=== PATIENT | male | born 1970 | race Hispanic/Latino ===

== ENCOUNTER 2017-11-06 11:06 | Emergency (ER) | payer BC ==
[~2017-11-06 11:06] MED LIST: AEC81 PO; ATOR40TA69 PO; LISI10TA7 PO; METF10004 PO; METO25TA6 PO; NITR0.4T SL; TICA90TA PO
[2017-11-06] MEDS ORDERED: ONDANSETRON HCL MDV 20ML 2 MG/ML VIAL ONE (11:46)
[2017-11-06] MEDS ORDERED: SODIUM CHLORIDE 0.9% 1000ML 1,000 ML IV ONE (11:46)
[2017-11-06 12:09] LABS: BASOPHILS % (AUTO) 0.6 % (0.0-5.0); EOSINOPHILS % (AUTO) 0.3 % (0.0-8.0); HEMATOCRIT 38.6 % (42-54); LYMPHOCYTES % (AUTO) 13.5 % (21.0-51.0); MEAN CORPUSCULAR HEMOGLOBIN 31.5 pg (27.0-33.0); MEAN CORPUSCULAR HGB CONC 35.3 g/dL (32.0-36.0); MEAN CORPUSCULAR VOLUME 89.1 fL (79-99); MONOCYTES % (AUTO) 5.3 % (3.0-13.0); NEUTROPHILS % (AUTO) 80.3 % (40.0-77.0); PLATELET COUNT (AUTO) 392 K/uL (130-400); RED BLOOD CELL COUNT(AUTO) 4.33 MIL/uL (4.50-6.20); RED CELL DISTRIBUTION WIDTH 14.4 % (11.0-15.5); WHITE BLOOD COUNT (AUTO) 8.6 K/uL (4.8-10.8)
[2017-11-06 12:19] LABS: CREATININE 1.1 mg/dL (0.5-1.5); POTASSIUM 3.8 mmol/L (3.5-5.1)
[2017-11-06 12:32] LABS: ALBUMIN 4.3 g/dL (3.5-5.0); BILIRUBIN,TOTAL 0.6 mg/dL (0.2-1.0); CREATINE KINASE MB 5.6 ng/mL (0.5-3.6)
== END 2017-11-06 16:10 | disposition home or self-care (01) ==
LOC: EDH 11:06
DX: E86.0 Dehydration (principal); R42 Dizziness and giddiness; I10 Essential (primary) hypertension; I25.2 Old myocardial infarction
CPT/HCPCS: 36415; 80053; 82550; 82553; 84484 ×2; 85025; 93005 ×2; 96361; 96374; 99285; J7030

== ENCOUNTER 2018-06-16 11:18 | Emergency (ER) | payer BC ==
[~2018-06-16 11:18] MED LIST changes: +METF-446 PO; -METF10004 PO
[2018-06-16 11:39] LABS: APPEARANCE,URINE Clear (CLEAR); BILIRUBIN,URINE Negative (NEGATIVE); COLOR,URINE Yellow (YELLOW); GLUCOSE, URINE (UA) 250 mg/dL (NEGATIVE); KETONES,URINE Negative (NEGATIVE); LEUKOCYTE ESTERASE ,URINE Trace (NEGATIVE); NITRATE,URINE Negative (NEGATIVE); OCCULT BLOOD,URINE Negative (NEGATIVE); PH,URINE 5.5 (5.0-8.0); PROTEIN,URINE Negative (NEGATIVE)
[2018-06-16 11:52] LABS: BACTERIA,URINE Rare /HPF (None Seen); RBC,URINE 0-1 /HPF (0-1); SQUAMOUS EPITHELIAL CELL,UR Rare /HPF (0-2); WBC,URINE 0-1 /HPF (0-1)
[2018-06-16] MEDS ORDERED: KETOROLAC TROMETHAMINE 60 MG/2 ML VIAL ONE (12:15)
== END 2018-06-16 13:04 | disposition home or self-care (01) ==
LOC: EDH 11:18
DX: R10.9 Unspecified abdominal pain (principal); E11.9 Type 2 diabetes mellitus without complications; I10 Essential (primary) hypertension; I25.2 Old myocardial infarction; Z72.0 Tobacco use
CPT/HCPCS: 71045; 81001; 96372; 99284; J1885

== ENCOUNTER 2018-08-28 07:56 | Emergency (ER) | payer BC ==
[2018-08-28] MEDS ORDERED: IBUPROFEN 600 MG TABLET ONE (09:02)
== END 2018-08-28 09:06 | disposition home or self-care (01) ==
LOC: EDH 07:56
DX: K11.20 Sialoadenitis, unspecified (principal); H92.02 Otalgia, left ear; E11.9 Type 2 diabetes mellitus without complications; I10 Essential (primary) hypertension; I25.2 Old myocardial infarction

== ENCOUNTER 2019-02-23 09:20 | Observation (INO) | payer BC ==
[~2019-02-23] VITALS: Ht 180.3 cm; Wt 83.9 kg
[2019-02-23 09:37] LABS: BASOPHILS % (AUTO) 1.2 % (0.0-5.0); EOSINOPHILS % (AUTO) 2.1 % (0.0-8.0); HEMATOCRIT 39.9 % (42-54); LYMPHOCYTES % (AUTO) 16.9 % (21.0-51.0); MEAN CORPUSCULAR HEMOGLOBIN 30.9 pg (27.0-33.0); MEAN CORPUSCULAR HGB CONC 34.6 g/dL (32.0-36.0); MEAN CORPUSCULAR VOLUME 89.5 fL (79-99); MONOCYTES % (AUTO) 6.5 % (3.0-13.0); NEUTROPHILS % (AUTO) 73.3 % (40.0-77.0); NUCLEATED RED BLOOD CELLS 0.1 % (0.0-0.19); PLATELET COUNT (AUTO) 282 K/uL (130-400); RED BLOOD CELL COUNT(AUTO) 4.46 MIL/uL (4.50-6.20); RED CELL DISTRIBUTION WIDTH 13.5 % (11.0-15.5); WHITE BLOOD COUNT (AUTO) 6.7 K/uL (4.8-10.8)
[2019-02-23] MEDS ORDERED: ASPIRIN 325 MG TABLET ONE (09:41)
[2019-02-23 09:45] LABS: CREATININE 0.8 mg/dL (0.5-1.5); POTASSIUM 3.9 mmol/L (3.5-5.1)
[2019-02-23] MEDS ORDERED: NITROGLYCERIN 0.4 MG SL TAB SL ONE (09:52)
[2019-02-23] MEDS ORDERED: INSULIN HUMULIN R 100 UNIT/ML 3ML ONE ×2 (09:53→11:54)
[2019-02-23 09:58] LABS: ALBUMIN 3.7 g/dL (3.5-5.0); BILIRUBIN,TOTAL 0.4 mg/dL (0.2-1.0); TOTAL PROTEIN, SERUM 7.2 g/dL (6.0-8.3)
[2019-02-23 10:00] LABS: B-TYPE NATRIURETIC PEPTIDE 25 pg/mL (0-100)
[2019-02-23 10:03] LABS: INR 0.91 (0.85-1.15); PROTHROMBIN TIME 9.6 SEC (9.6-11.6)
[2019-02-23] MEDS: NITROGLYCERIN 1GM/1 INCH PACKET TD SCH ×2 (11:45→20:52)
[2019-02-23] MEDS ORDERED: LACTULOSE 20 GM/30 ML UDCUP PO PRN (11:45)
[2019-02-23] MEDS ORDERED: ONDANSETRON HCL 4 MG/2 ML VIAL IV PRN (11:45)
[2019-02-23] MEDS ORDERED: HYDRALAZINE HCL 20 MG/ML VIAL IV PRN (11:45)
[2019-02-23] MEDS ORDERED: ACETAMINOPHEN 325 MG TAB PO PRN ×2 (11:45)
[2019-02-23] MEDS ORDERED: MORPHINE SULFATE 2 MG/ML 1ML SYG IV PRN (11:45)
[2019-02-23] MEDS ORDERED: NITROGLYCERIN 0.4 MG SL TAB SL PRN (11:45)
[2019-02-23 12:00] LABS: HEMOGLOBIN A1C 8.4 % (4.0-6.0)
[2019-02-23] MEDS ORDERED: ENOXAPARIN SODIUM 40 MG/0.4 ML SYRINGE SQ ONE (12:13)
[2019-02-23] MEDS ORDERED: NITROGLYCERIN 1GM/1 INCH PACKET TD ONE (12:13)
[2019-02-23] MEDS ORDERED: SODIUM CHLORIDE 0.9% 1000ML 1,000 ML IV ONE (12:14)
--- NOTE | 2019-02-23 12:40 | NUR ---
RECEIVED FROM ED VIA STRETCHER ACCOMPANIED BY ED RN. PT. AAOX3, RESP'S EVEN AND UNLABORED. DENIES ANY CURRENT SOB, DENIES ANY CURRENT PAIN. ORIENTED TO ROOM AND SURROUNDINGS. COMPLETE ASSESSMENT DONE. CALL LIGHT WITHIN REACH, VERBALIZED ABILITY TO USE. BED LOW, SIDE RAILS UP X2.
[2019-02-23 12:41] VITALS: BP 145/80
[2019-02-23] MEDS: SODIUM CHLORIDE 0.9% 1000ML 1,000 ML IV SCH ×2 (13:15→21:39)
[2019-02-23 13:24] LABS: CREATINE KINASE, TOTAL 135 U/L (21-232); MYOGLOBIN 31 ng/mL (10-92); TROPONIN I < 0.04 ng/mL (0.00-0.06)
[2019-02-23 16:30] VITALS: BP 124/75
[2019-02-23 19:49] VITALS: BP 143/70
[2019-02-23] MEDS: METOPROLOL TARTRATE 25 MG TAB PO SCH (20:52)
[2019-02-23 20:53] LABS: CREATINE KINASE, TOTAL 103 U/L (21-232); MYOGLOBIN 24 ng/mL (10-92); TROPONIN I < 0.04 ng/mL (0.00-0.06)
[2019-02-23] MEDS: FAMOTIDINE/PF 20 MG/2 ML VIAL IV SCH (20:53)
[2019-02-23 23:44] VITALS: BP 142/72
[2019-02-24 04:00] VITALS: BP 130/83
[2019-02-24 04:23] LABS: CREATINE KINASE, TOTAL 89 U/L (21-232); MYOGLOBIN 29 ng/mL (10-92); TROPONIN I < 0.04 ng/mL (0.00-0.06)
[2019-02-24] MEDS: NITROGLYCERIN 1GM/1 INCH PACKET TD SCH ×2 (04:31→12:08)
[2019-02-24] MEDS: SODIUM CHLORIDE 0.9% 1000ML 1,000 ML IV SCH (06:14)
--- NOTE | 2019-02-24 07:30 | NUR ---
ASSESSMENT ENCOUNTERED PT A&OX3, CALM COOPERATIVE AND DOES NOT APPEAR TO BE IN ANY DISTRESS NOR ANY NEURO DEFICITS PRESENT. PT DENIES PAIN, SOB, NAUSEA. RT GROIN SOFT NONTENDER WITH NO OOZING OR HEMATOMA PRESENT. DP/PT PULSES PALPABLE. PT IS AMBULATORY, GAIT STEADY AND STRONG WITH STAND BY ASSIST. CALL LIGHT WITHIN REACH.
[2019-02-24 07:47] VITALS: BP 140/75
[2019-02-24] MEDS ORDERED: ASPIRIN 325 MG TABLET PO SCH (09:00)
[2019-02-24] MEDS ORDERED: ENOXAPARIN SODIUM 40 MG/0.4 ML SYRINGE SQ SCH (09:00)
--- NOTE | 2019-02-24 09:40 | NUR ---
SS REFERRAL - EVAL Sw reviewed pt's chart. No SS issues identified at this time. SW to follow and assist as needed
[2019-02-24 12:03] VITALS: BP 159/95
[2019-02-24] MEDS: METOPROLOL TARTRATE 25 MG TAB PO SCH (12:07)
[2019-02-24] MEDS: FAMOTIDINE/PF 20 MG/2 ML VIAL IV SCH (12:08)
--- NOTE | 2019-02-24 14:36 | NUR ---
DC PLAN VISITED WITH PATIENT. PATIENT LIVES ALONE WITH CHILD. PATIENT HAS NO SERVICES OR DME'S. OKAY TO RETURN HOME. Addendum: 02/24/19 at 1437 by DANITZA LAGUNAS RN CM Amended: Links added.
[2019-02-24 15:45] VITALS: BP 148/92
[2019-02-24] MEDS ORDERED: METF-446 PO (17:00)
[2019-02-24] MEDS ORDERED: EMPA25TA PO (17:00)
[2019-02-24] MEDS ORDERED: METFORMIN HCL 500 MG TABLET PO SCH (17:00)
[2019-02-24] MEDS ORDERED: METO-408 PO (17:00)
[2019-02-24] MEDS ORDERED: ATORVASTATIN CALCIUM 40 MG TABLET PO SCH (21:00)
[2019-02-25] MEDS ORDERED: LOSARTAN 50 MG TABLET PO SCH (09:00)
[2019-02-25] MEDS ORDERED: ASPIRIN 325 MG TABLET PO SCH (09:00)
== END 2019-02-24 16:45 | disposition home or self-care (01) ==
LOC: EDH 09:20 → EDHIP 11:39 → 2DH 12:17
PROVIDERS: ADMIT Internal Medicine; ATTEND Internal Medicine
DX: I25.110 Atherosclerotic heart disease of native coronary artery with unstable angina pectoris (principal); E11.9 Type 2 diabetes mellitus without complications; E78.5 Hyperlipidemia, unspecified; I45.10 Unspecified right bundle-branch block; I10 Essential (primary) hypertension; I25.2 Old myocardial infarction; Z87.891 Personal history of nicotine dependence; Z95.5 Presence of coronary angioplasty implant and graft; Z82.49 Family history of ischemic heart disease and other diseases of the circulatory system; Z83.3 Family history of diabetes mellitus; Z79.899 Other long term (current) drug therapy; Z79.01 Long term (current) use of anticoagulants
CPT/HCPCS: 36415 ×2; 71045; 80053; 82550 ×4; 82948 ×4; 83036; 83874 ×4; 83880; 84484 ×4; 85025; 85610; 85730; 93005 ×4; 96372; 96374; 96376; 99283; G0378 ×28; J1650 ×2; J1815 ×2; J3490 ×2; J7030 ×2

== ENCOUNTER 2022-06-05 07:15 | Emergency (ER) | payer BC, OTHER ==
[~2022-06-05] VITALS: Ht 180.3 cm; Wt 79.4 kg
[~2022-06-05 07:15] MED LIST changes: +EMPA25TA PO; +LISI10TA24 PO; -LISI10TA7 PO; +METO-408 PO; -METO25TA6 PO; -NITR0.4T SL; -TICA90TA PO
[2022-06-05] MEDS ORDERED: KETOROLAC 15MG/ML VIAL (15MG/ML) IM ONE (08:30)
[2022-06-05 08:41] LABS: BASOPHILS % (AUTO) 0.8 % (0.0-5.0); EOSINOPHILS % (AUTO) 1.2 % (0.0-8.0); HEMATOCRIT 45.1 % (42-54); LYMPHOCYTES % (AUTO) 12.4 % (21.0-51.0); MEAN CORPUSCULAR HEMOGLOBIN 30.3 pg (27.0-33.0); MEAN CORPUSCULAR HGB CONC 34.4 g/dL (32.0-36.0); MEAN CORPUSCULAR VOLUME 88.3 fL (79-99); MONOCYTES % (AUTO) 10.5 % (3.0-13.0); NEUTROPHILS % (AUTO) 74.7 % (40.0-77.0); PLATELET COUNT (AUTO) 326 K/uL (130-400); RED BLOOD CELL COUNT(AUTO) 5.11 MIL/uL (4.50-6.20); RED CELL DISTRIBUTION WIDTH 12.6 % (11.0-15.5); WHITE BLOOD COUNT (AUTO) 10.3 K/uL (4.8-10.8)
[2022-06-05 08:51] LABS: CREATININE 0.6 mg/dL (0.5-1.5); POTASSIUM 3.7 mmol/L (3.5-5.1)
[2022-06-05 08:56] LABS: ALBUMIN 3.7 g/dL (3.5-5.0); TOTAL PROTEIN, SERUM 7.8 g/dL (6.0-8.3)
[2022-06-05 09:58] LABS: APPEARANCE,URINE CLEAR (CLEAR); BILIRUBIN,URINE NEGATIVE (NEGATIVE); COLOR,URINE LIGHT-YELLOW (YELLOW); GLUCOSE, URINE (UA) >=1000 mg/dL (NEGATIVE); KETONES,URINE NEGATIVE (NEGATIVE); LEUKOCYTE ESTERASE ,URINE NEGATIVE Leu/uL (NEGATIVE); NITRATE,URINE NEGATIVE (NEGATIVE); OCCULT BLOOD,URINE NEGATIVE (NEGATIVE); PH,URINE 5.5 (5.0-8.0); PROTEIN,URINE 70 mg/dL (NEGATIVE); UROBILINOGEN,URINE 0.2 mg/dL (0.2-1.0)
[2022-06-05] MEDS ORDERED: ACET-2079 PO (10:13)
[2022-06-05] MEDS ORDERED: IBUP-2070 PO (10:13)
[2022-06-05] MEDS ORDERED: METF-446 PO (10:14)
[2022-06-05 10:17] LABS: SQUAMOUS EPITHELIAL CELL,UR RARE /HPF (0-2); YEAST,URINE BUDDING RARE /HPF (None Seen)
[2022-06-05 10:32] VITALS: BP 139/85
== END 2022-06-05 10:37 | disposition home or self-care (01) ==
LOC: EDH 07:15
DX: M54.42 Lumbago with sciatica, left side (principal); E11.65 Type 2 diabetes mellitus with hyperglycemia; Z20.822 Contact with and (suspected) exposure to COVID-19; I10 Essential (primary) hypertension; Z79.84 Long term (current) use of oral hypoglycemic drugs; Z79.82 Long term (current) use of aspirin; Z79.899 Other long term (current) drug therapy
CPT/HCPCS: 99284; 87635; 80053; 85025; 81001; 36415; 72100; 96372; C9803; J1885

== ENCOUNTER 2022-07-01 08:54 | Observation (INO) | payer OTHER ==
[2022-07-01] VITALS (9 sets, daily range): BP systolic 119–148; BP diastolic 66–88
[~2022-07-01] VITALS: Ht 180.3 cm; Wt 80.3 kg
[~2022-07-01 08:54] MED LIST changes: +ACET-2079 PO; +IBUP-2070 PO
[2022-07-01 09:23] LABS: EOSINOPHILS % (AUTO) 1.2 % (0.0-8.0); HEMATOCRIT 43.1 % (42-54); LYMPHOCYTES % (AUTO) 18.7 % (21.0-51.0); MEAN CORPUSCULAR HEMOGLOBIN 29.8 pg (27.0-33.0); MEAN CORPUSCULAR HGB CONC 33.9 g/dL (32.0-36.0); MONOCYTES % (AUTO) 6.5 % (3.0-13.0); NEUTROPHILS % (AUTO) 72.1 % (40.0-77.0); PLATELET COUNT (AUTO) 331 K/uL (130-400); RED CELL DISTRIBUTION WIDTH 12.7 % (11.0-15.5); WHITE BLOOD COUNT (AUTO) 9.9 K/uL (4.8-10.8)
[2022-07-01] MEDS ORDERED: ASPIRIN 81MG CHEW TAB PO ONE (09:30)
[2022-07-01] MEDS ORDERED: LACTATED RINGERS 1000ML 1,000 ML IV ONE (09:30)
[2022-07-01 09:38] LABS: ALBUMIN 3.6 g/dL (3.5-5.0); CREATININE 0.7 mg/dL (0.5-1.5); POTASSIUM 3.3 mmol/L (3.5-5.1); TOTAL PROTEIN, SERUM 7.2 g/dL (6.0-8.3)
[2022-07-01 10:00] LABS: B-TYPE NATRIURETIC PEPTIDE 36 pg/mL (0-100)
[2022-07-01 10:16] LABS: APPEARANCE,URINE CLEAR (CLEAR); BILIRUBIN,URINE NEGATIVE (NEGATIVE); COLOR,URINE LIGHT-YELLOW (YELLOW); GLUCOSE, URINE (UA) >=1000 mg/dL (NEGATIVE); KETONES,URINE NEGATIVE (NEGATIVE); LEUKOCYTE ESTERASE ,URINE 25 Leu/uL (NEGATIVE); NITRATE,URINE NEGATIVE (NEGATIVE); OCCULT BLOOD,URINE NEGATIVE (NEGATIVE); PROTEIN,URINE 30 mg/dL (NEGATIVE); UROBILINOGEN,URINE 0.2 mg/dL (0.2-1.0)
[2022-07-01 10:18] LABS: AMPHET/METH SCREEN,URINE NEGATIVE (NEGATIVE); BARBITURATE SCREEN, URINE NEGATIVE (NEGATIVE); BENZODIAZEPINES SCREEN,URINE NEGATIVE (NEGATIVE); CANNABINOID SCREEN,URINE POSITIVE (NEGATIVE); COCAINE SCREEN,URINE NEGATIVE (NEGATIVE); MUCUS,URINE RARE LPF (None Seen); OPIATE SCREEN,URINE NEGATIVE (NEGATIVE); PHENCYCLIDINE SCREEN,URINE NEGATIVE (NEGATIVE); SQUAMOUS EPITHELIAL CELL,UR RARE /HPF (0-2)
[2022-07-01] MEDS ORDERED: ASPIRIN 325MG EC TAB PO STA (10:38)
[2022-07-01] MEDS ORDERED: NITROGLYCERIN 0.4 MG SL TAB SL STA (10:38)
[2022-07-01] MEDS ORDERED: ONDANSETRON 4MG INJ IV PRN (11:30)
[2022-07-01] MEDS ORDERED: MORPHINE 4 MG SYG IVP PRN (11:30)
[2022-07-01] MEDS ORDERED: ACETAMINOPHEN 500 MG TABLET PO PRN (11:30)
[2022-07-01] MEDS ORDERED: MORPHINE 2 MG SYG IVP PRN (11:30)
[2022-07-01] MEDS ORDERED: CLOPIDOGREL 300MG TAB PO SCH (11:30)
[2022-07-01] MEDS: METFORMIN HCL 500 MG TABLET PO SCH ×2 (12:00→16:09)
[2022-07-01] MEDS ORDERED: LISINOPRIL 2.5 MG TABLET PO SCH (12:00)
[2022-07-01 12:12] LABS: HEMATOCRIT 40.9 % (42-54)
[2022-07-01 12:23] LABS: PROTEIN,URINE RANDOM 39.1 mg/dL (0-11.9)
[2022-07-01] MEDS: 0.9%NACL 1000ML 1,000 ML IV SCH (13:32)
[2022-07-01] MEDS: ENOXAPARIN SODIUM 80 MG/0.8 ML SQ SCH ×2 (13:33→20:52)
[2022-07-01] MEDS: AMLODIPINE 5 MG TAB PO SCH (13:33)
[2022-07-01] MEDS: NITROGLYCERIN 1GM OINT 1 INCH/1GM TD SCH ×2 (13:34→20:53)
[2022-07-01] MEDS ORDERED: KCL 20 MEQ ERTAB PO ONE (14:00)
[2022-07-01] MEDS ORDERED: CLOPIDOGREL 300MG TAB PO ONE (16:00)
[2022-07-01] MEDS: INSULIN HUMULIN R 100 UNIT/ML 3ML SQ SCH ×2 (16:10→20:51)
[2022-07-01] MEDS ORDERED: NITROGLYCERIN 50MG VIAL ONE (16:23)
[2022-07-01] MEDS ORDERED: HEPARIN 10,000 UNIT/10ML (1,000 UNIT/ML) VIAL ONE (16:23)
[2022-07-01] MEDS ORDERED: MIDAZOLAM HCL 1 MG/ML 2ML VIAL ONE (16:24)
[2022-07-01] MEDS ORDERED: IODIXANOL 320 MG/ML 100 ML VIAL ONE (16:24)
[2022-07-01] MEDS ORDERED: LIDOCAINE HCL 400MG/20ML VIAL ONE (16:24)
[2022-07-01] MEDS ORDERED: FENTANYL CITRATE PF 50 MCG/1 ML 2ML VIAL ONE (16:24)
[2022-07-01] MEDS ORDERED: IOHEXOL-350 50ML VIAL IV ONE (16:24)
[2022-07-01] MEDS ORDERED: BIVALIRUDIN 250 MG/VIAL IV ONE ×2 (16:27→16:37)
[2022-07-01] MEDS ORDERED: EPTIFIBATIDE 2 MG/ML 10 ML VIAL IVP ONE (17:26)
[2022-07-01] MEDS ORDERED: 0.9%NACL 1000ML 1,000 ML IV SCH (18:30)
[2022-07-01] MEDS: FAMOTIDINE 20MG TAB PO SCH (20:52)
[2022-07-01] MEDS ORDERED: ATORVASTATIN 40 MG TABLET PO SCH (21:00)
[2022-07-01] MEDS ORDERED: INSULIN GLARGINE 100 UNITS/ML 10 ML VIAL SQ SCH (21:00)
[2022-07-02] MEDS ORDERED: ALPRAZOLAM 0.25 MG TABLET PO ONE
[2022-07-02] MEDS: 0.9%NACL 1000ML 1,000 ML IV SCH ×3 (00:05→06:46)
[2022-07-02 00:15] VITALS: BP 147/98
[2022-07-02 03:15] VITALS: BP 130/76
[2022-07-02 03:39] LABS: MEAN CORPUSCULAR HEMOGLOBIN 30.2 pg (27.0-33.0); MEAN CORPUSCULAR HGB CONC 33.8 g/dL (32.0-36.0); MEAN CORPUSCULAR VOLUME 89.3 fL (79-99); RED BLOOD CELL COUNT(AUTO) 5.04 MIL/uL (4.50-6.20); RED CELL DISTRIBUTION WIDTH 13.2 % (11.0-15.5); WHITE BLOOD COUNT (AUTO) 10.6 K/uL (4.8-10.8)
[2022-07-02 04:05] LABS: CREATININE 0.6 mg/dL (0.5-1.5); POTASSIUM 3.5 mmol/L (3.5-5.1)
[2022-07-02] MEDS: NITROGLYCERIN 1GM OINT 1 INCH/1GM TD SCH ×2 (04:37→12:37)
[2022-07-02] MEDS: INSULIN HUMULIN R 100 UNIT/ML 3ML SQ SCH ×2 (06:47→12:39)
[2022-07-02 07:55] VITALS: BP 106/62
[2022-07-02] MEDS: METFORMIN HCL 500 MG TABLET PO SCH (08:00)
[2022-07-02] MEDS: ENOXAPARIN SODIUM 80 MG/0.8 ML SQ SCH (08:17)
[2022-07-02] MEDS: AMLODIPINE 5 MG TAB PO SCH (08:17)
[2022-07-02] MEDS: FAMOTIDINE 20MG TAB PO SCH (08:17)
[2022-07-02] MEDS ORDERED: CLOPIDOGREL 75MG TAB PO SCH (09:00)
[2022-07-02] MEDS ORDERED: LISINOPRIL 2.5 MG TABLET PO SCH (09:00)
[2022-07-02] MEDS ORDERED: CEFTRIAXONE 2GM VIAL IVPB SCH (10:00)
[2022-07-02] MEDS ORDERED: 0.9%NACL 100ML 100 ML ONE (10:27)
[2022-07-02] MEDS ORDERED: ATOR40TA69 PO (10:50)
[2022-07-02] MEDS ORDERED: LISI10TA24 PO (10:50)
[2022-07-02] MEDS ORDERED: GLIP5TAB11 PO (10:50)
[2022-07-02] MEDS ORDERED: CLOP-31 PO (10:50)
[2022-07-02] MEDS ORDERED: METF-444 PO (10:52)
[2022-07-02] MEDS ORDERED: CEPH500B PO (10:56)
[2022-07-02] MEDS ORDERED: ASPI-1005 PO (10:56)
[2022-07-02 11:46] LABS: HEMOGLOBIN A1C 12.5 % (4.0-6.0)
[2022-07-02 12:08] VITALS: BP 120/67
[2022-07-02] MEDS ORDERED: EZET10TA48 PO (13:40)
[2022-07-02] MEDS ORDERED: GLIPIZIDE 5 MG TABLET PO SCH (16:30)
== END 2022-07-02 14:15 | disposition home or self-care (01) ==
LOC: EDH 08:54 → EDHIP 08:55 → 2AH 14:29
PROVIDERS: ADMIT Internal Medicine; ATTEND Internal Medicine
DX: I21.4 Non-ST elevation (NSTEMI) myocardial infarction (principal); I21.19 ST elevation (STEMI) myocardial infarction involving other coronary artery of inferior wall; E11.65 Type 2 diabetes mellitus with hyperglycemia; I10 Essential (primary) hypertension; E87.1 Hypo-osmolality and hyponatremia; E87.6 Hypokalemia; E87.8 Other disorders of electrolyte and fluid balance, not elsewhere classified; R80.9 Proteinuria, unspecified; R81 Glycosuria; I25.10 Atherosclerotic heart disease of native coronary artery without angina pectoris; E78.5 Hyperlipidemia, unspecified; F41.9 Anxiety disorder, unspecified; I25.2 Old myocardial infarction; I45.4 Nonspecific intraventricular block; N39.0 Urinary tract infection, site not specified; M79.81 Nontraumatic hematoma of soft tissue; T82.855A Stenosis of coronary artery stent, initial encounter; Y83.1 Surgical operation with implant of artificial internal device as the cause of abnormal reaction of the patient, or of later complication, without mention of misadventure at the time of the procedure; Z79.02 Long term (current) use of antithrombotics/antiplatelets; Z79.82 Long term (current) use of aspirin; Z79.84 Long term (current) use of oral hypoglycemic drugs; Z79.899 Other long term (current) drug therapy; Z91.199 Patient's noncompliance with other medical treatment and regimen due to unspecified reason
CPT/HCPCS: 93458; 96372 ×2; 99285; 82550 ×4; 84156; 82570; 83874 ×3; 84484 ×5; 80053; 83880 ×2; 80305; 85025; 85014; 85018; 87088; 82948 ×5; 82043; 81001; 36415 ×2; 71045; 93005 ×2; 96374; 83036; 80061; 80048; 85027; 93306; 93356; 76882; C1887; C1894 ×2; C1769; C1760; C1874; C1725; G0378 ×23; J7120; J3010; J3490 ×2; J7030 ×3; J2405; J1650 ×4; J1327; J1644; Q9967 ×2; J1815 ×3; C9606; J0696; 99156; 99157; J0583; J2250

== ENCOUNTER → 2022-11-06 | Outpatient (CLI) | payer BC ==
[~2022-11-06] MED LIST changes: -ACET-2079 PO; -AEC81 PO; +ASPI-1005 PO; +CEPH500B PO; +CLOP-31 PO; -EMPA25TA PO; +EZET10TA48 PO; +GLIP5TAB11 PO; -IBUP-2070 PO; +METF-444 PO; -METF-446 PO; -METO-408 PO
[2022-11-06 12:31] LABS: APPEARANCE,URINE CLOUDY (CLEAR); BILIRUBIN,URINE NEGATIVE (NEGATIVE); COLOR,URINE YELLOW (YELLOW); GLUCOSE, URINE (UA) 300 mg/dL (NEGATIVE); KETONES,URINE NEGATIVE (NEGATIVE); LEUKOCYTE ESTERASE ,URINE 250 Leu/uL (NEGATIVE); NITRATE,URINE NEGATIVE (NEGATIVE); OCCULT BLOOD,URINE NEGATIVE (NEGATIVE); PH,URINE 5.5 (5.0-8.0); PROTEIN,URINE 100 mg/dL (NEGATIVE); UROBILINOGEN,URINE 0.2 mg/dL (0.2-1.0)
[2022-11-06 12:36] LABS: BASOPHILS % (AUTO) 1.1 % (0.0-5.0); HEMATOCRIT 42.2 % (42-54); LYMPHOCYTES % (AUTO) 23.4 % (21.0-51.0); MEAN CORPUSCULAR HEMOGLOBIN 29.8 pg (27.0-33.0); MEAN CORPUSCULAR HGB CONC 32.7 g/dL (32.0-36.0); MEAN CORPUSCULAR VOLUME 91.1 fL (79-99); MONOCYTES % (AUTO) 7.6 % (3.0-13.0); NEUTROPHILS % (AUTO) 65.5 % (40.0-77.0); PLATELET COUNT (AUTO) 411 K/uL (130-400); RED BLOOD CELL COUNT(AUTO) 4.63 MIL/uL (4.50-6.20); RED CELL DISTRIBUTION WIDTH 13.3 % (11.0-15.5); WHITE BLOOD COUNT (AUTO) 8.1 K/uL (4.8-10.8)
[2022-11-06 12:44] LABS: BACTERIA,URINE RARE /HPF (None Seen); MUCUS,URINE MANY LPF (None Seen); SQUAMOUS EPITHELIAL CELL,UR MOD /HPF (0-2)
[2022-11-06 12:54] LABS: ALBUMIN 4.1 g/dL (3.5-5.0); CREATININE 0.7 mg/dL (0.5-1.5); POTASSIUM 3.8 mmol/L (3.5-5.1); THYROID STIMULATING HORMONE 1.32 uIU/mL (0.36-3.74); TOTAL PROTEIN, SERUM 7.8 g/dL (6.0-8.3)
[2022-11-06 13:16] LABS: HEMOGLOBIN A1C 9.4 % (4.0-6.0)
== END | disposition home or self-care (01) ==
LOC: LAB 08:14
PROVIDERS: ATTEND Internal Medicine Cardiovascular Disease
DX: I25.10 Atherosclerotic heart disease of native coronary artery without angina pectoris (principal); E78.5 Hyperlipidemia, unspecified
CPT/HCPCS: 36415; 80050; 80053; 81001; 83036; 83721; 84443; 85025; 87088

== ENCOUNTER 2023-10-22 09:01 | Observation (INO) | payer BC ==
[~2023-10-22] VITALS: Ht 180.3 cm; Wt 78.1 kg
[~2023-10-22 09:01] MED LIST changes: -GLIP5TAB11 PO; +GLIP5TAB15 PO
[2023-10-22 09:27] LABS: BASOPHILS # (AUTO) 0.09 K/uL (0.00-0.20); BASOPHILS % (AUTO) 0.9 % (0.0-5.0); EOSINOPHILS # (AUTO) 0.43 K/uL (0.00-0.70); EOSINOPHILS % (AUTO) 4.5 % (0.0-8.0); IMMATURE GRANULOCYTE ABSOLUTE 0.03 K/uL (0-1); LYMPHOCYTES # (AUTO) 2.1 K/uL (1.0-4.8); LYMPHOCYTES % (AUTO) 21.4 % (21.0-51.0); MEAN CORPUSCULAR HEMOGLOBIN 30.7 pg (27.0-33.0); MEAN CORPUSCULAR HGB CONC 34.1 g/dL (32.0-36.0); MEAN CORPUSCULAR VOLUME 89.9 fL (79-99); MONOCYTES # (AUTO) 0.7 K/uL (0.1-1.0); NEUTROPHILS # (AUTO) 6.4 K/uL (1.8-7.7); NEUTROPHILS % (AUTO) 65.9 % (40.0-77.0); PLATELET COUNT (AUTO) 341 K/uL (130-400); RED BLOOD CELL COUNT(AUTO) 4.56 MIL/uL (4.50-6.20); RED CELL DISTRIBUTION WIDTH 13.2 % (11.0-15.5); WHITE BLOOD COUNT (AUTO) 9.7 K/uL (4.8-10.8)
[2023-10-22 09:38] LABS: CREATININE 0.7 mg/dL (0.5-1.3); POTASSIUM 3.8 mmol/L (3.5-5.1)
[2023-10-22 09:40] LABS: APPEARANCE,URINE CLEAR (CLEAR); BILIRUBIN,URINE NEGATIVE (NEGATIVE); COLOR,URINE LIGHT-YELLOW (YELLOW); GLUCOSE, URINE (UA) NEGATIVE (NEGATIVE); KETONES,URINE NEGATIVE (NEGATIVE); LEUKOCYTE ESTERASE ,URINE 75 Leu/uL (NEGATIVE); NITRATE,URINE NEGATIVE (NEGATIVE); OCCULT BLOOD,URINE NEGATIVE (NEGATIVE); PH,URINE 5.5 (5.0-8.0); PROTEIN,URINE 50 mg/dL (NEGATIVE); UROBILINOGEN,URINE 0.2 mg/dL (0.2-1.0)
[2023-10-22 09:42] LABS: ADD UA MICROSCOPIC YES
[2023-10-22 09:43] LABS: MUCUS,URINE RARE LPF (None Seen); OTHER CASTS, URINE 1 /LPF (None Seen); RBC,URINE 0-1 /HPF (0-1); SQUAMOUS EPITHELIAL CELL,UR RARE /HPF (0-2); TRANSITIONAL EPI CELLS,URINE RARE /HPF (None Seen)
[2023-10-22 09:44] LABS: ALBUMIN 3.8 g/dL (3.5-5.0); BILIRUBIN,TOTAL 0.4 mg/dL (0.2-1.0); TOTAL PROTEIN, SERUM 7.6 g/dL (6.0-8.3)
[2023-10-22 09:52] LABS: AMPHET/METH SCREEN,URINE NEGATIVE (NEGATIVE); BARBITURATE SCREEN, URINE NEGATIVE (NEGATIVE); BENZODIAZEPINES SCREEN,URINE NEGATIVE (NEGATIVE); CANNABINOID SCREEN,URINE POSITIVE (NEGATIVE); COCAINE SCREEN,URINE NEGATIVE (NEGATIVE); OPIATE SCREEN,URINE NEGATIVE (NEGATIVE); PHENCYCLIDINE SCREEN,URINE NEGATIVE (NEGATIVE)
[2023-10-22 09:58] LABS: B-TYPE NATRIURETIC PEPTIDE 31 pg/mL (0-100)
[2023-10-22 10:15] LABS: INR <= 0.93 (0.85-1.15); PROTHROMBIN TIME 10.2 SEC (9.6-11.6)
[2023-10-22 10:16] LABS: PARTIAL THROMBOPLASTIN TIME 31.2 SEC (26.3-35.5)
[2023-10-22] MEDS: ENOXAPARIN SODIUM 80 MG/0.8 ML SQ ONE (12:24)
[2023-10-22] MEDS: ASPIRIN 325MG TAB PO ONE (12:25)
[2023-10-22] MEDS: NITROGLYCERIN 1GM OINT 1 INCH/1GM TD ONE (12:25)
[2023-10-22] MEDS ORDERED: POTASSIUM CHLORIDE 10% ELIXIR 20 MEQ/15 ML UDCUP PO PRN (13:30)
[2023-10-22] MEDS ORDERED: ONDANSETRON 4MG INJ IVP PRN (13:30)
[2023-10-22] MEDS ORDERED: KCL 20 MEQ ERTAB PO PRN (13:30)
[2023-10-22] MEDS ORDERED: ACETAMINOPHEN 500 MG TABLET PO PRN (13:30)
[2023-10-22] MEDS ORDERED: POTASSIUM CHLORIDE 20MEQ/100ML 100 ML IV PRN (13:30)
[2023-10-22 13:47] LABS: HEMOGLOBIN A1C 8.2 % (4.0-6.0)
[2023-10-22] MEDS: CEFTRIAXONE 1G VIAL IVPB SCH (13:48)
[2023-10-22 13:55] LABS: MAGNESIUM 1.8 mg/dL (1.80-2.40); THYROID STIMULATING HORMONE 0.73 uIU/mL (0.36-3.74)
[2023-10-22] MEDS ORDERED: METO-408 PO (15:30)
[2023-10-22] MEDS: INSULIN HUMULIN R 100 UNIT/ML 3ML SQ SCH (17:25)
[2023-10-22] MEDS: MAGNESIUM 2GM PREMIX 50ML 50 ML IV SCH (17:26)
[2023-10-22 17:35] VITALS: BP 127/67; PULSE 51; RESP 18
[2023-10-22 19:58] VITALS: BP 149/79; PULSE 50; RESP 18
[2023-10-22 20:00] VITALS: O2SAT 100
[2023-10-22] MEDS: ATORVASTATIN 40 MG TABLET PO SCH (20:53)
[2023-10-22] MEDS: FAMOTIDINE 20MG VIAL IV SCH (20:53)
[2023-10-22] MEDS: METOPROLOL TARTRATE 25 MG TAB PO SCH (20:54)
[2023-10-23] VITALS (7 sets, daily range): BP systolic 116–160; BP diastolic 65–86; PULSE 50–72; RESP 18; O2SAT 100
[2023-10-23] MEDS: ENOXAPARIN SODIUM 80 MG/0.8 ML SQ SCH (00:41)
[2023-10-23 04:02] LABS: BASOPHILS # (AUTO) 0.09 K/uL (0.00-0.20); BASOPHILS % (AUTO) 0.8 % (0.0-5.0); EOSINOPHILS # (AUTO) 0.39 K/uL (0.00-0.70); EOSINOPHILS % (AUTO) 3.6 % (0.0-8.0); HEMATOCRIT 42.3 % (42-54); IMMATURE GRANULOCYTE ABSOLUTE 0.04 K/uL (0-1); LYMPHOCYTES % (AUTO) 9.7 % (21.0-51.0); MEAN CORPUSCULAR HEMOGLOBIN 31.2 pg (27.0-33.0); MEAN CORPUSCULAR HGB CONC 34.3 g/dL (32.0-36.0); MONOCYTES # (AUTO) 0.8 K/uL (0.1-1.0); MONOCYTES % (AUTO) 7.2 % (3.0-13.0); NEUTROPHILS # (AUTO) 8.4 K/uL (1.8-7.7); NEUTROPHILS % (AUTO) 78.3 % (40.0-77.0); PLATELET COUNT (AUTO) 330 K/uL (130-400); RED BLOOD CELL COUNT(AUTO) 4.65 MIL/uL (4.50-6.20); RED CELL DISTRIBUTION WIDTH 13.3 % (11.0-15.5); WHITE BLOOD COUNT (AUTO) 10.8 K/uL (4.8-10.8)
[2023-10-23 04:19] LABS: ALBUMIN 3.4 g/dL (3.5-5.0); BILIRUBIN,TOTAL 0.4 mg/dL (0.2-1.0); CREATININE 0.7 mg/dL (0.5-1.3); MAGNESIUM 1.9 mg/dL (1.80-2.40); POTASSIUM 3.8 mmol/L (3.5-5.1); TOTAL PROTEIN, SERUM 7.1 g/dL (6.0-8.3)
[2023-10-23] MEDS ORDERED: CEFD300C3 PO (12:53)
[2023-10-23] MEDS ORDERED: NITR0.4T50 SL (12:54)
[2023-10-23] MEDS: CLOPIDOGREL 75MG TAB PO SCH (14:28)
[2023-10-23] MEDS: ASPIRIN 81 MG EC TAB PO SCH (14:29)
[2023-10-23] MEDS: REGADENOSON 0.4 MG/5 ML PF SYG IVP SCH (14:35)
== END 2023-10-23 20:30 | disposition still patient (30) ==
LOC: EDH 09:01 → INTOOBSV 13:19 → EDHIP 13:19 → 2AH 15:27
PROVIDERS: ADMIT Internal Medicine; ATTEND Internal Medicine
DX: I21.4 Non-ST elevation (NSTEMI) myocardial infarction (principal); I25.119 Atherosclerotic heart disease of native coronary artery with unspecified angina pectoris; I10 Essential (primary) hypertension; E11.9 Type 2 diabetes mellitus without complications; E78.5 Hyperlipidemia, unspecified; N39.0 Urinary tract infection, site not specified; F12.90 Cannabis use, unspecified, uncomplicated; I25.2 Old myocardial infarction; Z79.4 Long term (current) use of insulin; Z87.891 Personal history of nicotine dependence; Z91.199 Patient's noncompliance with other medical treatment and regimen due to unspecified reason; Z95.5 Presence of coronary angioplasty implant and graft; Z79.899 Other long term (current) drug therapy
CPT/HCPCS: 96372 ×2; 96366 ×2; 96367; 99285; 80050; 83036; 82550 ×3; 83735 ×2; 84484 ×4; 80061; 83880; 80305; 85610; 85730; 87088; 82948 ×6; 81001; 36415 ×2; 71045; 96365; 96375; 93005 ×2; 96376; 80053; 85025; 93017; 78452; 93306; 93356; 76376; J3475; J3490; J0696 ×3; J1650 ×3; J1815; G0378 ×8; J2785; A9500 ×2; 84443; 96374